=== PATIENT | female | born 1990 | race Caucasian/White ===

== ENCOUNTER 2019-08-13 08:02 | Emergency (ER) | payer SELFPAY ==
[2019-08-13 08:27] LABS: #Basophils 0.2 thou/uL (0.0-0.2); #Eosinphils 0.3 thou/uL (0.0-0.7); #Lymphocytes 5.4 thou/uL (1.20-3.40); %Basophils 1.6 % (0.0-1.0); %Eosinophils 2.4 % (0.0-10.0); %Lymphocytes 45.7 % (21.0-51.0); %Monocytes 8.4 % (0.0-10.0); Hemoglobin 14.8 g/dL (12.0-16.0); Mean Corpuscular HGB CONC 34.5 g/dL (32.0-36.0); Mean Corpuscular Hemoglobin 30.4 pg (27.0-31.0); Mean Corpuscular Volume 88.2 fL (78.0-98.0); Mean Platelet Volume 9.2 fL (7.4-10.4); Platelet Count 342 thou/uL (130-400); RBC Distribution Width 11.4 % (11.5-14.5); Red Blood Cell (RBC) Count 4.86 mill/uL (4.20-5.40); White Blood Cell (WBC) Count 11.8 thou/uL (4.8-10.8)
[2019-08-13 08:45] LABS: Bilirubin Negative (Negative); Blood, Urine Negative (Negative); Clarity Clear (Clear); Glucose, Urine (Dipstick) Normal (Negative); Leukocyte Negative Leu/uL (Negative); Nitrite Negative (Negative); Protein, Urine (Dipstick) Negative (Neg-Trace); Urobilinogen Normal mg/dL (Less than 2)
[2019-08-13 08:53] LABS: Pregnancy Test - Urine (BHCG) Negative (Negative); Pregu Control Background? CLEAR/WHITE (CLR/WHITE); Pregu Control Bar Appear? YES (CONTROL BAR); Specific Gravity 1.011 (1.002-1.036)
[2019-08-13 08:53] LABS: ALT (SGPT) 16 U/L (8-55); AST (SGOT) 23 U/L (5-34); Albumin 4.9 g/dL (3.5-5.0); Alkaline Phosphatase 78 U/L (40-110); Anion Gap 18 mmol/L (10-20); BUN (Urea Nitrogen) 13 mg/dL (7.0-18.7); Bilirubin, Total 0.3 mg/dL (0.2-1.2); Calc. Creatinine Clearance 0 mL/min (70-130); Calcium 9.6 mg/dL (7.8-10.44); Carbon Dioxide 18 mmol/L (22-29); Chloride 103 mmol/L (98-107); Estimated GFR-MDRD 77; Globulin 4.1 g/dL (2.4-3.5); Glucose 114 mg/dL (70-105); Potassium 4.2 mmol/L (3.5-5.1); Sodium 135 mmol/L (136-145)
[2019-08-13 08:56] LABS: Amphetamine Not Detected (NotDetected); Cocaine Metabolite Screen Not Detected (NotDetected); Medtox Reader # READER 1; Methamphetamine Not Detected (NotDetected); Opiate Screen Not Detected (NotDetected); Phencyclidine (PCP) Not Detected (NotDetected); THC/Cannabinoid Screen Detected (NotDetected)
[2019-08-13 08:57] LABS: Barbiturates Screen Not Detected (NotDetected); Benzodiazepine Screen Not Detected (NotDetected); Medtox Control Line Valid? VALID (VALID); Methadone Not Detected (NotDetected); Oxycodone Screen Not Detected (NotDetected); Tricyclic Screen Not Detected (NotDetected)
== END 2019-08-13 10:05 | disposition home or self-care (01) ==
LOC: ERS 08:02
DX: R56.9 Unspecified convulsions (principal); I49.9 Cardiac arrhythmia, unspecified; F17.210 Nicotine dependence, cigarettes, uncomplicated
CPT/HCPCS: 80053; 80306; 81003; 81025; 84146; 85025; 93005; 96360

== ENCOUNTER 2020-08-24 08:30 | Emergency (ER) | payer SELFPAY | END 2020-08-24 09:40 | disposition home or self-care (01) | LOC: ERS 08:30 | DX: K04.7 Periapical abscess without sinus (principal); K03.81 Cracked tooth; F17.210 Nicotine dependence, cigarettes, uncomplicated | CPT/HCPCS: 99282 ==

== ENCOUNTER 2020-08-30 09:12 | Emergency (ER) | payer SELFPAY ==
[~2020-08-30 09:12] MED LIST: Iopamidol 370 76% 100 ML VIAL ONE
[2020-08-30 10:03] LABS: #Basophils 0.1 thou/uL (0.0-0.2); #Eosinphils 0.1 thou/uL (0.0-0.7); #Lymphocytes 2.8 thou/uL (1.20-3.40); #Monocytes 0.8 thou/uL (0.11-0.59); #Neutrophils 6.2 thou/uL (1.40-6.50); %Basophils 1.2 % (0.0-1.0); %Eosinophils 0.8 % (0.0-10.0); %Lymphocytes 28.5 % (21.0-51.0); %Monocytes 7.6 % (0.0-10.0); %Neutrophils 61.8 % (42.0-75.0); Hemoglobin 14.8 g/dL (12.0-16.0); Mean Corpuscular HGB CONC 33.9 g/dL (32.0-36.0); Mean Corpuscular Volume 91.4 fL (78.0-98.0); Mean Platelet Volume 8.8 fL (7.4-10.4); Platelet Count 302 thou/uL (130-400); RBC Distribution Width 11.2 % (11.5-14.5); Red Blood Cell (RBC) Count 4.76 mill/uL (4.20-5.40)
[2020-08-30 10:27] LABS: ALT (SGPT) 15 U/L (8-55); AST (SGOT) 13 U/L (5-34); Albumin 4.3 g/dL (3.5-5.0); Alkaline Phosphatase 66 U/L (40-110); Anion Gap 14 mmol/L (10-20); BUN (Urea Nitrogen) 9 mg/dL (7.0-18.7); Bilirubin, Total 0.3 mg/dL (0.2-1.2); Calc. Creatinine Clearance 0 mL/min (70-130); Carbon Dioxide 26 mmol/L (22-29); Chloride 104 mmol/L (98-107); Estimated GFR-MDRD 83; Globulin 3.4 g/dL (2.4-3.5); Glucose 99 mg/dL (70-105); Potassium 4.5 mmol/L (3.5-5.1); Protein, Total 7.7 g/dL (6.0-8.3); Sodium 139 mmol/L (136-145)
[2020-08-30] MEDS ORDERED: Ondansetron PF 4 MG/2 ML Vial ONE (11:19)
[2020-08-30 12:06] LABS: BHCG - Serum Negative (NEGATIVE); Pregs Control Background? CLEAR/WHITE (CLR/WHITE); Pregs Control Bar Appear? YES (CONTROL BAR)
[2020-08-30 12:09] LABS: Bilirubin Negative (Negative); Blood, Urine Negative (Negative); Clarity Clear (Clear); Glucose, Urine (Dipstick) Normal (Negative); Ketone, Urine 10 mg/dL (Negative); Leukocyte Negative Leu/uL (Negative); Nitrite Negative (Negative); Protein, Urine (Dipstick) Negative (Neg-Trace); Specific Gravity, Urine 1.005 (1.002-1.036); Urobilinogen Normal mg/dL (Less than 2)
--- NOTE | 2020-08-30 12:33 | CT ---
CT HEAD WITHOUT IV CONTRAST COMPARISON: 10/11/2013 HISTORY: Trauma. Vomiting twice. Seizure this a.m. TECHNIQUE: Axial CT imaging at 5 mm intervals from vertex through skull base without contrast FINDINGS: There is no evidence of an acute infarction, hemorrhage, mass effect, or midline shift. The ventricul ar system is normal in size, shape, and position. Skull base has a normal CT appearance. Visualized paranasal sinuses are clear. Osseous structures appear intact. There is been no interval change when compared to prior exam. IMPRESSION: 1. No acute intracranial abnormality demonstrated.
--- NOTE | 2020-08-30 12:45 | CT ---
CT ABDOMEN AND PELVIS WITH IV CONTRAST 08/30/2020 CLINICAL INFORMATION: Abdominal pain. Vomiting x2. Rectal bleeding which started yesterday. COMPARISON: 01/21/2015 Technique: Multiple contiguous axial CT images are obtained through the abdomen and pelvis with IV contrast. Cor onal reformatted images are provided. FINDINGS: Lower Chest: Lung bases are clear. Vessels: Abdominal aorta is normal in caliber. Abdomen: Portal vein:Patent. Low attenuation areas are seen in branches of the superior mesenteric vein, but t his is likely due to mixing artifact. Gallbladder: Within normal limits for CT imaging. Liver: within normal limits. Spleen: within normal limits. Pancreas: within normal limits. Adrenals: within normal limits. Kidneys: Subcentimeter too small to characterize hyperdense lesion inferior pole left kidney. Kidneys otherwise have a normal CT appearance bilaterally. Bowel: The colon is incompletely distended, but there does appear to be mild wall thickening involvin g a portion of the transverse colon which could be related to infectious or inflammatory colitis. Appendix: The appendix is visualized and normal in caliber. Peritoneum: No ascites or free air; no fluid collection. Mesentery and Retroperitoneum: No enlarged mesenteric or retroperitoneal lymph nodes. Abdominal Wall: within normal limits. Pelvis: Reproductive Organs: 1.6 cm hypodense lesion right adnexal region likely due to dominant follicle or small right ovarian cyst. Bladder: within normal limits. Bones: No suspicious lytic or sclerotic osseous lesions. IMPRESSION: 1. Mild wall thickening involving the transverse colon which may be related to infectious or inflamma tory colitis.
== END 2020-08-30 13:46 | disposition home or self-care (01) ==
LOC: ERS 09:12
DX: K52.9 Noninfective gastroenteritis and colitis, unspecified (principal); I47.1 Supraventricular tachycardia; F17.210 Nicotine dependence, cigarettes, uncomplicated
CPT/HCPCS: 36415; 70450; 74177; 80053; 81003; 83690; 84703; 85025; 86850; 86900; 86901; 93005; 96374; J2405; Q9967

== ENCOUNTER 2020-09-21 18:39 | Inpatient (IN) | payer SELFPAY ==
[2020-09-21] MEDS ORDERED: Ketorolac Tromethamine 30 MG/ML VIAL ONE (19:19)
[2020-09-21 19:25] LABS: Bacteria/HPF None Seen HPF (None Seen); Bilirubin Negative (Negative); Blood, Urine 1+ (Negative); Clarity Clear (Clear); Glucose, Urine (Dipstick) Normal (Negative); Ketone, Urine 20 mg/dL (Negative); Leukocyte 25 Leu/uL (Negative); Nitrite Negative (Negative); Protein, Urine (Dipstick) Negative (Neg-Trace); Specific Gravity, Urine 1.011 (1.002-1.036); Squamous Epithelial 0-3 HPF (0-3); Urobilinogen Normal mg/dL (Less than 2)
[2020-09-21 19:48] LABS: Mean Corpuscular HGB CONC 34.2 g/dL (32.0-36.0); Mean Corpuscular Hemoglobin 31.1 pg (27.0-31.0); Mean Corpuscular Volume 91.1 fL (78.0-98.0); Mean Platelet Volume 9.5 fL (7.4-10.4); Platelet Count 240 thou/uL (130-400); RBC Distribution Width 11.3 % (11.5-14.5); Red Blood Cell (RBC) Count 4.49 mill/uL (4.20-5.40); White Blood Cell (WBC) Count 34.6 thou/uL (4.8-10.8)
[2020-09-21 19:55] LABS: BHCG - Serum Negative (NEGATIVE); Pregs Control Background? CLEAR/WHITE (CLR/WHITE); Pregs Control Bar Appear? YES (CONTROL BAR)
--- NOTE | 2020-09-21 20:00 | RAD ---
Chest one view HISTORY: Fever. FINDINGS: Cardiac silhouette and pulmonary vasculature are unremarkable. Mediastinum is midline. No lobar consolidation or evidence of pneumothorax. IMPRESSION : No abnormalities are demonstrated.
[2020-09-21 20:08] LABS: Band 35 % (5-11); Lymphocytes 2 % (21-51); MDiff Complete? YES; Monocytes 3 % (0-10); Neutrophil 60 % (42-75); Platelet Morphology Comment Appears Adequate; Polychromasia SLIGHT = 2-3 cells (100X) (0-2/hpf)
[2020-09-21 20:15] LABS: ALT (SGPT) 8 U/L (8-55); AST (SGOT) 21 U/L (5-34); Albumin 4.5 g/dL (3.5-5.0); Alkaline Phosphatase 73 U/L (40-110); Anion Gap 20 mmol/L (10-20); BUN (Urea Nitrogen) 9 mg/dL (7.0-18.7); Calc. Creatinine Clearance 0 mL/min (70-130); Calcium 9.7 mg/dL (7.8-10.44); Carbon Dioxide 17 mmol/L (22-29); Chloride 104 mmol/L (98-107); Estimated GFR-MDRD 82; Globulin 3.7 g/dL (2.4-3.5); Glucose 90 mg/dL (70-105); Lipase 155 U/L (8-78); Potassium 4.3 mmol/L (3.5-5.1); Protein, Total 8.2 g/dL (6.0-8.3); Sodium 137 mmol/L (136-145)
[2020-09-21] MEDS ORDERED: Piperacillin/Tazobactam 4.5 GM VIAL ONE (20:47)
[2020-09-21] MEDS ORDERED: Lorazepam 2 MG/ML VIAL ONE ×2 (20:57→21:34)
--- NOTE | 2020-09-21 21:01 | CT ---
CT abdomen and pelvis with IV contrast HISTORY: Abdominal pain. Infectious colitis. COMPARISON: 08/30/2020. FINDINGS: The lung bases are clear. The liver, spleen, kidneys, adrenal glands, and pancreas have a n ormal CT appearance. Urinary bladder is unremarkable. No free air or free fluid. The transverse colon now has a normal appearance. Nondilated fluid-filled loops of small bowel are sc attered throughout the abdomen. No evidence of obstruction. Incidental note of a small focus of transient intussusception involving the mid small bowel in the midabdomen. IMPRESSION : Interval resolution of the transverse colon inflammation. No new abnormalities are demonstrated.
[2020-09-21] MEDS ORDERED: Acetaminophen 325 MG TAB PO PRN (22:37)
[2020-09-21] MEDS ORDERED: Ondansetron PF 4 MG/2 ML Vial IVP PRN (22:37)
[2020-09-21 23:21] LABS: SARS-CoV-2 NAA Rapid Test Not Detected (NotDetected)
[2020-09-21] MEDS ORDERED: Magnesium 2 GM/50 ML BAG (IN WATER) ONE (23:54)
--- NOTE | 2020-09-21 23:55 | PDOC.HHP ---
Hospitalist HPI - History of Present Illness Fever and diarrhea History of Present Illness: 30-year-old woman with a history of supraventricular tachycardia presented to the emergency department with a complaint of fever and diarrhea. Patient was in the ED about 2 weeks ago for abdominal pain and was diagnosed with infectious colitis. She was discharged with oral Flagyl and ciprofloxacin. She stated her symptoms improved but then started experiencing diarrhea yesterday. She denied any bloody stools. She now reports mild abdominal pain. Also reports vomiting and dizziness. She stated she fell once. She has severe leukocytosis with WBC count up to 35,[address] abdomen and pelvis done in the ED demonstrated possible small focus of transient intussusception involving the mid small bowel in the mid abdomen, scattered nondilated fluid-filled loops of small bowel. UA suggest the presence of UTI. Lactic acid was not elevated. ED physician informed me he contacted general surgery Dr. Mares who recommended only nonsurgical management and GI consult at this time. Patient meets criteria for sepsis with tachycardia and leukocytosis. She was given a dose of IV Zosyn and hydrated with IV normal saline in the ED. She is admitted for further management. Noted her COVID-19 test is negative. Hospitalist ROS - Review of Systems Other: Except as documented, all other systems reviewed and negative. Hospitalist History - Past Medical History Other Medical History: Supraventricular tachycardia. - Past Surgical History Other Surgical History: Dental extraction. - Social History Smoking Status: Current every day smoker Alcohol: reports: Occassional Drugs: reports: marijuana - Exam General Appearance: NAD, awake alert Eye: PERRL, anicteric sclera ENT: normocephalic atraumatic, moist mucosa Neck: supple, no JVD Heart: RRR (Tachycardic), no murmur, no gallops Respiratory: CTAB, no wheezes, no rales, no ronchi Gastrointestinal: soft, non-tender, non-distended, normal bowel sounds Extremities: no cyanosis, no edema Skin: normal turgor, no rashes Neurological: cranial nerve grossly intact, no weakness, no focal deficits Musculoskeletal: normal tone, normal strength Psychiatric: normal behavior, A&O x 3 Psychiatric - other findings: Anxious Hospitalist Results - Labs Result Diagrams: 09/21/20 19:35 09/21/20 19:35 Lab results: WBC 34.6 thou/uL (4.8-10.8) H 09/21/20 19:35 Hgb 14.0 g/dL (12.0-16.0) 09/21/20 19:35 Hct 40.9 % (36.0-47.0) 09/21/20 19:35 MCV 91.1 fL (78.0-98.0) 09/21/20 19:35 Plt Count 240 thou/uL (130-400) 09/21/20 19:35 Band Neuts % (Manual) 35 % (5-11) H 09/21/20 19:35 Sodium 137 mmol/L (136-145) 09/21/20 19:35 Potassium 4.3 mmol/L (3.5-5.1) 09/21/20 19:35 Chloride 104 mmol/L (98-107) 09/21/20 19:35 Carbon Dioxide 17 mmol/L (22-29) L 09/21/20 19:35 BUN 9 mg/dL (7.0-18.7) 09/21/20 19:35 Creatinine 0.81 mg/dL (0.6-1.1) 09/21/20 19:35 Glucose 90 mg/dL (70-105) 09/21/20 19:35 Lactic Acid 1.2 mmol/L (0.5-2.2) 09/21/20 22:51 Calcium 9.7 mg/dL (7.8-10.44) 09/21/20 19:35 Total Bilirubin 1.0 mg/dL (0.2-1.2) 09/21/20 19:35 AST 21 U/L (5-34) 09/21/20 19:35 ALT 8 U/L (8-55) 09/21/20 19:35 Alkaline Phosphatase 73 U/L (40-110) 09/21/20 19:35 Serum Total Protein 8.2 g/dL (6.0-8.3) 09/21/20 19:35 Albumin 4.5 g/dL (3.5-5.0) 09/21/20 19:35 Lipase 155 U/L (8-78) H 09/21/20 19:35 Urine Ketones 20 mg/dL (Negative) A 09/21/20 19:09 Urine Blood 1+ (Negative) A 09/21/20 19:09 Urine Nitrite Negative (Negative) 09/21/20 19:09 Ur Leukocyte Esterase 25 Carmen/uL (Negative) A 09/21/20 19:09 Urine RBC 11-20 HPF (0-3) A 09/21/20 19:09 Urine WBC 4-6 HPF (0-3) A 09/21/20 19:09 Ur Squamous Epith Cells 0-3 HPF (0-3) 09/21/20 19:09 Urine Bacteria None Seen HPF (None Seen) 09/21/20 19:09 Hospitalist H&P A/P - Problem (1) Sepsis Code(s): A41.9 - SEPSIS, UNSPECIFIED ORGANISM Status: Acute (2) Colitis Code(s): K52.9 - NONINFECTIVE GASTROENTERITIS AND COLITIS, UNSPECIFIED Status: Acute (3) UTI (urinary tract infection) Status: Acute - Plan Plan: Admit to telemetry. Sepsis protocol initiated in the ED. Lactate is normal. We will continue IV Zosyn. Follow urine culture and blood cultures. Consult to GI. IV hydration with normal saline Monitor CBC for improvement. Optimize electrolytes. Serial abdominal examination.
[2020-09-22] MEDS: Sodium Chloride 0.9% 1,000 ML IV SCH ×3 (01:17→14:32)
[2020-09-22] MEDS: Piperacillin/Tazobactam 4.5 GM in Sodium Chloride 0.9% 100 ML IVPB SCH ×3 (03:41→14:30)
[2020-09-22 04:02] VITALS: BMI 19.1
[2020-09-22 15:41] VITALS: BP 105/78; TEMP 99.1
[2020-09-22] MEDS ORDERED: Lorazepam 2 MG/ML VIAL SLOW IVP PRN (16:09)
--- NOTE | 2020-09-22 16:12 | PDOC.HOSPP ---
- Subjective Encounter Date: 09/22/20 Encounter Time: 16:11 Subjective: Ms. Hester was seen today in follow-up of diarrhea. She is feeling anxious, and says she is tired of waiting for the [employer]. She is threatening to leave AMA. She says the back pain she was having has resolved. She continues to have diarrhea. - Objective Vital Signs & Weight: Vital Signs (12 hours) Temp Pulse Resp BP Pulse Ox 09/22/20 15:40 99.1 F 97 16 105/78 98 09/22/20 11:46 98.6 F 98 20 105/73 98 Weight Admit Weight 104 lb 4.8 oz Weight 104 lb 4.8 oz I&O: 09/21/20 09/22/20 09/23/20 06:59 06:59 06:59 Intake Total 638 Output Total 200 Balance 438 Result Diagrams: 09/21/20 19:35 09/21/20 19:35 Hospitalist ROS - Medication Medications: Active Medications Generic Name Dose Route Start Last Admin Trade Name Freq PRN Reason Stop Dose Admin Sodium Chloride 1,000 mls @ 126 mls/hr 09/21/20 22:45 09/22/20 14:32 Normal Saline 0.9% IV 1,000 mls .[id number] SUDHIR Administration Piperacillin Sod/Tazobactam 100 mls @ 200 mls/hr 09/22/20 03:00 09/22/20 14:30 Sod 4.5 gm/ Sodium Chloride IVPB 100 mls 0300,0900,1500,2100 SUDHIR Administration - Exam Eye: PERRL, anicteric sclera Heart: RRR, murmur present, II/IV Respiratory: CTAB, no wheezes, no rales, no ronchi, normal chest expansion Gastrointestinal: soft, non-tender, non-distended, normal bowel sounds, no palpable masses, no hepatomegaly Extremities: no cyanosis, no edema Hosp A/P (1) Colitis Code(s): K52.9 - NONINFECTIVE GASTROENTERITIS AND COLITIS, UNSPECIFIED Status: Acute (2) Sepsis Code(s): A41.9 - SEPSIS, UNSPECIFIED ORGANISM Status: Acute (3) Tobacco abuse Code(s): Z72.0 - TOBACCO USE Status: Chronic - Plan * Diarrhea- ? etiology- stool studies are negative * Awaiting GI evaluation * Leukocytosis- will need to repeat the WBC count, and await blood and urine culture results. * Tobacco Abuse- Nicotine patch was offered but she refused, and she was too agitated for counseling on smoking cessation
[2020-09-22 16:15] LABS: #Basophils 0.1 thou/uL (0.0-0.2); #Eosinphils 0.1 thou/uL (0.0-0.7); #Lymphocytes 2.4 thou/uL (1.20-3.40); #Monocytes 0.9 thou/uL (0.11-0.59); #Neutrophils 15.7 thou/uL (1.40-6.50); %Basophils 0.6 % (0.0-1.0); %Eosinophils 0.5 % (0.0-10.0); %Lymphocytes 12.4 % (21.0-51.0); %Monocytes 4.6 % (0.0-10.0); %Neutrophils 81.9 % (42.0-75.0); Hemoglobin 11.4 g/dL (12.0-16.0); Mean Corpuscular HGB CONC 32.4 g/dL (32.0-36.0); Mean Corpuscular Hemoglobin 29.5 pg (27.0-31.0); Mean Platelet Volume 8.8 fL (7.4-10.4); Platelet Count 189 thou/uL (130-400); RBC Distribution Width 11.3 % (11.5-14.5); Red Blood Cell (RBC) Count 3.87 mill/uL (4.20-5.40); White Blood Cell (WBC) Count 19.2 thou/uL (4.8-10.8)
[2020-09-22 16:25] LABS: Anion Gap 14 mmol/L (10-20); BUN (Urea Nitrogen) 8 mg/dL (7.0-18.7); Calc. Creatinine Clearance 83 mL/min (70-130); Calcium 8.5 mg/dL (7.8-10.44); Carbon Dioxide 18 mmol/L (22-29); Chloride 110 mmol/L (98-107); Estimated GFR-MDRD Greater than 90; Glucose 83 mg/dL (70-105); Potassium 3.5 mmol/L (3.5-5.1); Sodium 138 mmol/L (136-145)
--- NOTE | 2020-09-23 02:41 | CON ---
DATE OF CONSULTATION: 09/22/2020 REASON FOR CONSULTATION: Fever, diarrhea, and sepsis with unexplained origin. CONSULTING PROVIDER: Michael Levine. HISTORY OF PRESENT ILLNESS: The patient is a 30-year-old female with a past medical history of supraventricular tachycardia and tobacco abuse, presenting with complaints of fever and diarrhea. She states that she was in her usual state of health until approximately 1 month ago when she began having increased sinus congestion and drainage and diagnosed with a sinus infection. She was subsequently placed on clindamycin as part of antibiotic therapy for this and responded well to antibiotic therapy; however, after completion of her antibiotic, she began having intermittent episodes of abdominal pain and diarrhea for which the patient was ultimately seen in the [facility] ER with a CT scan showing colonic wall thickening within the transverse colon, consistent with colitis. She was subsequently discharged to home on ciprofloxacin and Flagyl, and again with this antibiotic therapy was doing better, but was also experiencing intermittent episodes of constipation where the patient will take a stool softener in order to facilitate defecation. However, yesterday, the patient had an acute onset of increased abdominal pain located to the generalized abdomen that was associated with fever of approximately 102 degrees Fahrenheit and diarrhea that ultimately prompted her to come back to the [facility] ER for further evaluation. On speaking with the patient, she states that she had been having approximately 8 to 10 semi-solid to liquid bowel movements over the last 24 hours that were associated with increased nausea/vomiting with the vomitus consisting primarily of clear mucus. She also endorsed an approximate 20-pound weight loss over the last month since taking Flagyl where the patient did have significant side effects while taking that particular medication. However, she currently denied any hematemesis, melena, hematochezia, dysphagia, odynophagia, or constipation. Upon further speaking with the patient, she states that prior to the onset of her symptoms, she had consumed a piece of cake from a gas station that her also consumed with the onset of symptoms within the next 8 hours. In speaking with both her and her , her had also experienced increased abdominal pain, nausea, vomiting, and subjective fevers, but his were milder when compared to that of the patient (the patient had consumed more of the cake rather than her ). Currently, during this admission, she was placed on antibiotic therapy in light of possible colitis and after IV fluid resuscitation, states that she has been feeling better with complete resolution of her abdominal pain and improvement in her diarrhea and fever. Of note, the patient has been diagnosed with prior bouts of "colitis" in the past, occurring approximately once every three years and fairly self-limiting in terms of its duration with the improvement in symptoms with antibiotic administration. She also states that she has a grandmother who has been diagnosed with ulcerative colitis. REVIEW OF SYSTEMS: A 10-category review of systems was obtained with all responses negative except for the pertinent positives as listed in HPI. PAST MEDICAL HISTORY: As per HPI. PAST SURGICAL HISTORY: Dental extraction. FAMILY HISTORY: States that she has a grandmother diagnosed with ulcer colitis, but no other GI conditions including malignancies. SOCIAL HISTORY: Currently smokes 1/2 to 1 pack per day of tobacco with occasional marijuana use and alcohol use. OUTPATIENT MEDICATIONS: Ibuprofen 600 mg as needed. ALLERGIES: NO KNOWN DRUG ALLERGIES. PHYSICAL EXAMINATION: VITAL SIGNS: Temperature 99.1, pulse 97, blood pressure 105/78, respiratory rate 16, saturating 98% on room air. GENERAL: The patient is lying in bed, in no acute distress. Alert and oriented x4. HEENT: Normocephalic and atraumatic. NECK: Supple. No JVD or scleral icterus noted. CARDIOVASCULAR: Borderline tachycardic rate but regular rhythm with no discernible murmurs, gallops, or rubs. RESPIRATORY: Clear to auscultation bilaterally with no discernible wheezes or rales. ABDOMEN: Normoactive bowel sounds. Soft, nontender, and nondistended. EXTREMITIES: No cyanosis, clubbing, or edema. LABORATORY DATA: CBC with a white blood cell count of 19.2, hemoglobin 11.4, hematocrit 35.2, platelets 189. Chemistry with a sodium of 138, potassium 3.5, chloride 110, CO2 of 18, BUN 8, creatinine 0.73, glucose 83. Urinalysis showed the presence of small amounts of white blood cell and red blood cells with positive leukocyte esterase concerning for possible urinary tract infection. Serologies were negative for COVID-19. IMAGING DATA: CT of the abdomen and pelvis was obtained on September 21, 2020, which showed multiple nondilated fluid-filled loops within the small bowel. However, it also did show a possible small focus of intussusception involving the mid small bowel. ASSESSMENT AND PLAN: The patient is a 30-year-old female with past medical history of supraventricular tachycardia, tobacco abuse, and marijuana abuse, presenting with complaints of abdominal pain, fever, and diarrhea, concerning for possible infectious process/food poisoning. Infectious process/food poisoning. The patient was in her usual state of health until approximately 1 month ago when she began taking numerous antibiotics for sinusitis and colitis respectively. After treatment of her colitis, she was doing better but had acute onset of nausea, vomiting, abdominal pain, and diarrhea yesterday after the consumption of food that she obtained from a gas station and from which her had also experienced similar symptoms after consuming this particular cake. With admission to the hospital now and with IV fluid administration along with broad-spectrum antibiotics, the patient has been doing much better and had complete resolution of her abdominal pain, nausea, and vomiting, although she does continue to have mild small volume diarrhea-like bowel movements. At this time, given the relation to eating a possible contaminated food and the fact that her experienced very similar symptoms, "food poisoning" is definitely within the differential and will most likely resolve within the next 48 to 72 hours without any further treatment. Her stool studies were negative for Clostridium difficile, but no stool studies were obtained for other usual pathogens including E. coli, campylobacter, salmonella or shigella, which could potentially generate very similar symptoms and may prompt treatment given her current labs and sepsis. However, upon conferring with the patient, she is reluctant to stay in the hospital for further treatment and with improvement in her clinical status, is requesting to go home. I stated to the patient that further workup is advised given the acute onset of her symptoms and her current labs, but she could be potentially discharged to home with followup in the outpatient GI Clinic or come back to the [facility] ER if her condition worsens upon returning home. She expressed understanding that this could delay in diagnosis or lead to further complications and still wished to go home. RECOMMENDATIONS: 1. Would attempt to complete the infectious stool studies with the patient submitting a stool sample prior to discharge. 2. We would discharge the patient to home with instructions to follow up in the outpatient clinic. 3. I advised the patient on continued oral hydration and more conservative management over the next 48 to 72 hours. 4. I strongly advised the patient to come back to [facility] ER if her condition worsens. We will sign off at this time. Please call with any questions. Job ID: [id number]
== END 2020-09-22 19:45 | disposition home or self-care (01) | DRG 872 ==
LOC: ERS 18:39 → ERHOLD 21:57 → 2SE 09-22 01:56
PROVIDERS: ADMIT Internal Medicine; ATTEND Internal Medicine
DX: A41.9 Sepsis, unspecified organism (principal); N39.0 Urinary tract infection, site not specified; F17.210 Nicotine dependence, cigarettes, uncomplicated; Z20.828 Contact with and (suspected) exposure to other viral communicable diseases; F12.10 Cannabis abuse, uncomplicated; K52.9 Noninfective gastroenteritis and colitis, unspecified
CPT/HCPCS: 36415; 71045; 74177; 80048; 80053; 81003; 81015; 83605; 83690; 84145; 84484; 84703; 85025; 87040; 87045; 87046; 87081; 87086; 87324; 87427; 87449; 87804; 93005; J1885; J2060; J2543; J3475; J3490; U0002

== ENCOUNTER 2020-09-24 11:09 | Emergency (ER) | payer SELFPAY ==
[2020-09-24 11:50] LABS: #Basophils 0.1 thou/uL (0.0-0.2); #Eosinphils 0.2 thou/uL (0.0-0.7); #Monocytes 0.9 thou/uL (0.11-0.59); #Neutrophils 4.9 thou/uL (1.40-6.50); %Basophils 1.2 % (0.0-1.0); %Eosinophils 1.9 % (0.0-10.0); %Lymphocytes 33.1 % (21.0-51.0); %Monocytes 9.8 % (0.0-10.0); Hemoglobin 12.5 g/dL (12.0-16.0); Mean Corpuscular HGB CONC 33.6 g/dL (32.0-36.0); Mean Corpuscular Hemoglobin 30.5 pg (27.0-31.0); Mean Corpuscular Volume 90.7 fL (78.0-98.0); Mean Platelet Volume 9.1 fL (7.4-10.4); Platelet Count 225 thou/uL (130-400); RBC Distribution Width 11.2 % (11.5-14.5); Red Blood Cell (RBC) Count 4.11 mill/uL (4.20-5.40)
[2020-09-24 12:09] LABS: ALT (SGPT) 28 U/L (8-55); AST (SGOT) 19 U/L (5-34); Albumin 4.1 g/dL (3.5-5.0); Alkaline Phosphatase 119 U/L (40-110); Anion Gap 16 mmol/L (10-20); BUN (Urea Nitrogen) 7 mg/dL (7.0-18.7); Bilirubin, Total Less than 0.2 mg/dL (0.2-1.2); Calc. Creatinine Clearance 0 mL/min (70-130); Calcium 9.2 mg/dL (7.8-10.44); Carbon Dioxide 22 mmol/L (22-29); Chloride 107 mmol/L (98-107); Glucose 84 mg/dL (70-105); Potassium 3.9 mmol/L (3.5-5.1); Protein, Total 7.1 g/dL (6.0-8.3); Sodium 141 mmol/L (136-145)
[2020-09-24] MEDS ORDERED: Haloperidol Lactate 5 MG/ML VIAL ONE (12:47)
[2020-09-24] MEDS ORDERED: Ketorolac Tromethamine 30 MG/ML VIAL ONE (12:47)
[2020-09-24 12:57] LABS: Bacteria/HPF None Seen HPF (None Seen); Bilirubin Negative (Negative); Blood, Urine Trace (Negative); Clarity Clear (Clear); Glucose, Urine (Dipstick) Normal (Negative); Ketone, Urine 20 mg/dL (Negative); Leukocyte Negative Leu/uL (Negative); Nitrite Negative (Negative); Protein, Urine (Dipstick) Negative (Neg-Trace); RBC/HPF None Seen HPF (0-3); Specific Gravity, Urine 1.006 (1.002-1.036); Squamous Epithelial 0-3 HPF (0-3); Urobilinogen Normal mg/dL (Less than 2); WBC/HPF 0-3 HPF (0-3); pH, Urine 5.5 (5.0-9.0)
[2020-09-24 12:58] LABS: Pregnancy Test - Urine (BHCG) Negative (Negative); Pregu Control Background? CLEAR/WHITE (CLR/WHITE); Pregu Control Bar Appear? YES (CONTROL BAR); Specific Gravity 1.006 (1.002-1.036)
[2020-09-24] MEDS ORDERED: diphenhydrAMINE 50 MG/ML VIAL ONE (13:26)
== END 2020-09-24 16:00 | disposition home or self-care (01) ==
LOC: ERS 11:09
DX: K52.9 Noninfective gastroenteritis and colitis, unspecified (principal)
CPT/HCPCS: 36415; 80053; 81003; 81015; 81025; 83605; 83690; 85025; 96374; 96375; J1200; J1630; J1885

== ENCOUNTER 2020-11-14 15:56 | Emergency (ER) | payer SELFPAY | END 2020-11-14 16:47 | disposition left against medical advice (07) | LOC: ERS 15:56 | DX: Z53.21 Procedure and treatment not carried out due to patient leaving prior to being seen by health care provider (principal) ==

== ENCOUNTER 2022-03-23 05:42 | Emergency (ER) | payer SELFPAY ==
[2022-03-23] MEDS ORDERED: Lidocaine Viscous Sol 2% 15 ml UD Cup ONE (05:55)
[2022-03-23] MEDS ORDERED: Ondansetron ODT 4 MG TAB ONE (05:55)
== END 2022-03-23 06:41 ==
LOC: ERS 05:42
DX: R07.0 Pain in throat (principal); F17.210 Nicotine dependence, cigarettes, uncomplicated
CPT/HCPCS: 99282; Q0162

== ENCOUNTER 2022-04-18 06:43 | Emergency (ER) | payer SELFPAY ==
[2022-04-18 07:43] LABS: #Basophils 0.1 thou/uL (0.0-0.2); #Eosinphils 0.1 thou/uL (0.0-0.7); #Lymphocytes 2.8 thou/uL (1.20-3.40); #Monocytes 0.8 thou/uL (0.11-0.59); #Neutrophils 4.2 thou/uL (1.40-6.50); %Basophils 1.8 % (0.0-1.0); %Eosinophils 1.5 % (0.0-10.0); %Lymphocytes 34.6 % (21.0-51.0); %Neutrophils 52.1 % (42.0-75.0); Hemoglobin 12.8 g/dL (12.0-16.0); Mean Corpuscular HGB CONC 33.3 g/dL (32.0-36.0); Mean Corpuscular Hemoglobin 30.5 pg (27.0-31.0); Mean Corpuscular Volume 91.8 fL (78.0-98.0); Mean Platelet Volume 8.4 fL (7.4-10.4); Platelet Count 252 thou/uL (130-400); RBC Distribution Width 11.1 % (11.5-14.5); Red Blood Cell (RBC) Count 4.18 mill/uL (4.20-5.40); White Blood Cell (WBC) Count 8.1 thou/uL (4.8-10.8)
[2022-04-18 08:02] LABS: Pregnancy Test - Urine (BHCG) Negative (Negative)
[2022-04-18 08:03] LABS: Pregu Control Background? CLEAR/WHITE (CLR/WHITE); Pregu Control Bar Appear? YES (CONTROL BAR); Specific Gravity 1.005 (1.002-1.036)
[2022-04-18 08:06] LABS: ALT (SGPT) 16 U/L (8-55); AST (SGOT) 16 U/L (5-34); Albumin 4.2 g/dL (3.5-5.0); Alkaline Phosphatase 61 U/L (40-110); Anion Gap 15 mmol/L (10-20); BUN (Urea Nitrogen) 10 mg/dL (7.0-18.7); Bilirubin, Total 0.5 mg/dL (0.2-1.2); Calc. Creatinine Clearance 0 mL/min (70-130); Calcium 8.6 mg/dL (7.8-10.44); Carbon Dioxide 21 mmol/L (22-29); Chloride 108 mmol/L (98-107); Globulin 2.8 g/dL (2.4-3.5); Glucose 91 mg/dL (70-105); Sodium 140 mmol/L (136-145)
== END 2022-04-18 08:19 | disposition home or self-care (01) ==
LOC: ERS 06:43
DX: R07.9 Chest pain, unspecified (principal); F17.210 Nicotine dependence, cigarettes, uncomplicated
CPT/HCPCS: 36415; 71045; 80053; 81025; 84484; 85025; 93005

== ENCOUNTER 2022-10-23 07:34 | Emergency (ER) | payer SELFPAY | END 2022-10-23 09:05 | disposition home or self-care (01) | LOC: ERS 07:34 | DX: S90.31XA Contusion of right foot, initial encounter (principal); W22.8XXA Striking against or struck by other objects, initial encounter ==